=== PATIENT | male | born 1975 | race Caucasian/White ===

== ENCOUNTER 2017-12-27 10:57 | Emergency (ER) | payer SELFPAY, OTHER ==
[2017-12-27] MEDS: LIDOCAINE 1% MDV 20ML VIAL SC (11:54)
[2017-12-27] MEDS: ADACEL/BOOSTRIX VACCINE (DIPHTH/PERTUSS/ACELL/TETANUS)0.5ML SYR (90715) IM (12:05)
== END 2017-12-27 13:41 | disposition home or self-care (01) ==
LOC: M ED 10:57
DX: S01.81XA Laceration without foreign body of other part of head, initial encounter (principal); S01.112A Laceration without foreign body of left eyelid and periocular area, initial encounter; S16.1XXA Strain of muscle, fascia and tendon at neck level, initial encounter; V86.52XA Driver of snowmobile injured in nontraffic accident, initial encounter; Y92.096 Garden or yard of other non-institutional residence as the place of occurrence of the external cause; Z87.891 Personal history of nicotine dependence
CPT/HCPCS: 90715